=== PATIENT | female | born 2005 | race Hispanic/Latino ===

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

== ENCOUNTER 2023-07-30 18:37 | Emergency (ER) | payer MEDICAID, OTHER | END 2023-07-30 21:28 | disposition left against medical advice (07) | LOC: EDH 18:37 | DX: R51.9 Headache, unspecified (principal); Z53.21 Procedure and treatment not carried out due to patient leaving prior to being seen by health care provider ==